=== PATIENT | male | born 1970 | race Caucasian/White ===

== ENCOUNTER → 2017-02-13 | Outpatient (CLI) | payer BC ==
--- NOTE | 2017-02-13 10:50 | KCIC ---
MRI of the lumbar spine without contrast 02/13/2017 CLINICAL HISTORY: Low back pain which radiates down the left leg. TECHNIQUE: Unenhanced T1-weighted and T2-weighted sagittal and axial and inversion recovery sagittal images of the lumbar spine were obtained. FINDINGS: For the purposes of this dictation 5 lumbar vertebrae have been assumed. S1 is slightly lumbarized. Very mild S-shaped curvature of the thoracolumbar spine is seen. Degenerative signal changes are seen involving the L2-3, L4-5 and L5-S1 discs. Degenerative signal changes are seen within the marrow surrounding these discs. The conus medullaris is normal morphology, position, and signal characteristics. The L1-2 disc space is within normal limits. At the L2-3 disc space there is a mild generalized disc bulge. Degenerative changes are seen involving the facet joints bilaterally. There is mild ligamentum flavum hypertrophy bilaterally. These findings when combined do not result in significant central spinal canal or neural foraminal stenosis. At the L3-4 disc space there is a mild generalized disc bulge. Degenerative changes are seen involving the facet joints bilaterally. There is mild ligamentum flavum hypertrophy bilaterally. There is prominence of the posterior epidural fat. These findings when combined do not result in significant central spinal canal or neural foraminal stenosis. At the L4-5 disc space there is a mild generalized disc bulge. This is eccentric to the right. Degenerative changes are seen involving the facet joints bilaterally. There is mild ligamentum flavum hypertrophy bilaterally. Superimposed on the disc bulge is a central/right paracentral focal disc protrusion. This measures 3 mm in AP diameter. These findings when combined do not result in significant central spinal canal or neural foraminal stenosis. At the L5-S1 disc space there is a mild to moderate generalized disc bulge. Superimposed on the disc bulge is a left paracentral/lateral disc osteophyte complex. This measures 5 mm in AP diameter. Degenerative changes are seen involving the facet joints, left greater than right. These findings when combined result in mild left greater than right central spinal canal stenosis. Moderate to severe left neural foraminal stenosis is seen. Mild right neural foraminal stenosis is noted. IMPRESSION: The changes of degenerative disc disease are seen throughout the lumbar spine. These findings when combined result in mild left greater than right central spinal canal stenosis with moderate to severe left neural foraminal stenosis and mild right neural foraminal stenosis at L5-S1. Electronically signed by: Jerome Dey MD (02/13/2017 10:46 AM) [email or web address]
== END | disposition home or self-care (01) ==
LOC: KCIC MRI 09:07
PROVIDERS: ATTEND Chiropractor
DX: M51.36 Other intervertebral disc degeneration, lumbar region (principal); M48.06 Spinal stenosis, lumbar region
CPT/HCPCS: 72148

== ENCOUNTER → 2017-04-12 | Outpatient (CLI) | payer BC ==
[~2017-04-12] MED LIST: Calcium; FLAX10003 PO; HYDR-2758 PO; IOHEXOL 180 MG/ML 10 ML VIAL. ONE; LISINOPRIL; MAGN400C PO; OMEG100021 PO; OMEP20CA9 PO; Vitamin B; Vitamin C; methylPREDNISolone ACETATE 40 MG/ML VIAL. ONE; methylPREDNISolone ACETATE 80 MG/ML VIAL. ONE
--- NOTE | 2017-04-13 01:28 | PAIN ---
DATE OF SERVICE: 04/12/2017 DIAGNOSES: Lumbar radiculopathy with lumbar spinal stenosis, lumbar degenerative disk disease. HISTORY OF PRESENT ILLNESS: The patient is a 47-year-old male who returns for followup status post lumbar epidural steroid injection x 1. The patient reports about 25% improvement overall but after the first few days, the pain began to reduce fairly significantly to about a 50% level, now is about 25%, is becoming more noticeable in the low back, left lower extremity, posterior gluteus, posterior thighs, posterolateral calf and posterior calf, into the foot on the lateral aspect. The patient reports a 10 on a scale of 10 at its worst, 7 at average and 5 on a scale of 10 at its least and is a 5 today. The patient reports aching, sharp, dull, tight, shooting, stabbing, cramping, burning, tingling, becoming more bearable and again building up over time after his last injection, which was on 03/27. The patient reports no motor or sensory deficits. No bowel or bladder incontinence. It awakens him from sleep, but only occasionally, not every night and he sleeps about 6 hours at a time, he needs to be repositioned, sometime sleeps with a heating pad which helps his back as well. PHYSICAL EXAMINATION: VITAL SIGNS: The patient's blood pressure is 148/94, pulse 69, respirations are 20, temperature is 98.0 degrees Fahrenheit. Weight is 291 pounds. GENERAL: The patient is awake, alert, oriented, appropriate, has a very pleasant demeanor. HEENT: Shows normocephalic, atraumatic. Extraocular movements are intact, symmetrical. Oral cavity shows mucous membranes are moist and pink. Dentition is intact. NECK: Shows anterior throat supple without palpable lymphadenopathy noted. Swallow reflex is symmetrical. CHEST: Shows normal on inspection. Breath sounds are clear to auscultation bilaterally. HEART: Shows S1 and S2 clear. No murmurs auscultated. ABDOMEN: Soft, nontender, nondistended. No palpable organomegaly is noted. No rebound or guarding demonstrated. MUSCULOSKELETAL: Back shows spine grossly in the midline. Lumbar paraspinous muscle shows symmetrical on inspection with normal lordotic curvature; with palpation shows some moderate tenderness with palpation bilaterally, but only diffusely without radiation. The patient has good rotational motion both laterally as well as extension and flexion without significant pain reported. The patient's lower extremities showed deep tendon reflexes at 2+ in the patellar and tendo-calcaneus tendons. Motor exam is strong with 5/5 dorsiflexion, extension, quadriceps and hamstring flexion and are symmetrical. Peripheral pulses are 2+, posterior tibial. No peripheral edema is noted bilaterally. PLAN: Options were discussed with the patient and the patient's old chart was reviewed as his current medication regimen and updated. Current review of systems updated today as well and we will proceed with a second in the series lumbar epidural steroid injection today with fluoroscopic guidance. Risks were again discussed including, but not limited to bleeding, infection, possibility of epidural hematoma, subsequent neurological compromise, dural puncture, headaches, spinal cord and/or nerve damage, side effects of steroid medication and poor results regarding pain control. The patient understands and wishes to proceed. The patient is to return to clinic in approximately 2 weeks for followup, was counseled on return appointment, activity level and side effects to be aware of. DIAGNOSES: Lumbar radiculopathy with lumbar spinal stenosis, lumbar degenerative disk disease. PROCEDURE: Lumbar epidural steroid injection in translaminar approach at the L5-S1 level using C-arm fluoroscopic guidance under a sterile prep and drape using local anesthetic. MEDICATIONS INJECTED: A total of 120 mg of Depo-Medrol plus 10 mL of preservative-free normal saline and 2 mL of Isovue for contrast. CONDITION AT DISCHARGE: Stable. The patient tolerated procedure well, had no complications. ANTOINE ZIMMERMAN MD DR: DIDIER/little JOB#: [id number] / [id number]
== END ==
LOC: PNCL 10:07
PROVIDERS: ATTEND Anesthesiology
DX: M48.061 Spinal stenosis, lumbar region without neurogenic claudication (principal); M51.16 Intervertebral disc disorders with radiculopathy, lumbar region
CPT/HCPCS: 62323; J1030; J1040

== ENCOUNTER → 2018-01-11 | Outpatient (CLI) | payer BC ==
[~2018-01-11] MED LIST changes: +CYCL10TA2 PO; +IBUP-1027 PO; +LIDOCAINE 2% PF 2ML VIAL. ONE
--- NOTE | 2018-01-11 16:52 | PAIN ---
DATE OF SERVICE: 01/11/2018 PROGRESS NOTE FOR PAIN CLINIC DIAGNOSIS: Lumbar radiculopathy with lumbar degenerative disk disease and lumbar spinal stenosis. HISTORY OF PRESENT ILLNESS: The patient is a 47-year-old male who returns for followup status post lumbar epidural steroid injection, last seen on 04/12/2017. The patient did very well with near 100% improvement for several months. The patient reports it is currently still helping, but the pain is returning now, more on the right side in the low back than it was on the left, radiating into the posterior gluteus, posterior thigh, posterior calf and lateral calf on the right side. The patient reports some in the left side as well, but mostly on the right. The patient reports it is worse with walking, standing and changing positions. He is sleeping well at night; however, does not awaken him when he is sleeping. It is also better with sitting. The patient reports he had increased his distance walking. He was able to return to work activities, household activities, recreational activities with much greater ease and comfort, now the pain returning, now reports a tingling, burning, cramping, stabbing, shooting, tight, dull, sharp, aching, constant, radiating and becoming more unbearable on the low back in the right side. The patient reports it is a 10 on a scale of 10 at its worst, 9 on average, 0 at its least and is an 8 today. The patient reports no new motor or sensory deficits, no new bowel or bladder incontinence or other complaints. PHYSICAL EXAMINATION: VITAL SIGNS: The patient's blood pressure 145/89, pulse 74, respirations 16, temperature 98.2 degrees Fahrenheit, height 6 feet 1 inch, weight is 313 pounds. GENERAL: The patient is awake, alert, oriented, appropriate, very pleasant demeanor. HEENT: Head shows normocephalic, atraumatic. Extraocular movements are intact and symmetrical. Oral cavity: Mucous membranes are moist and pink. Dentition is intact. NECK: Shows anterior throat supple without palpable lymphadenopathy noted. Swallow reflex is symmetrical. CHEST: Shows normal on inspection. Breath sounds are clear to auscultation bilaterally. HEART: Shows S1, S2 clear. No murmurs auscultated. ABDOMEN: Soft, nontender, nondistended. No palpable organomegaly is noted. No rebound or guarding demonstrated. BACK: Shows spine grossly in the midline. Normal-appearing thoracic kyphosis and lumbar lordotic curvature. Lumbar paraspinous muscle shows symmetrical on inspection, on palpation shows some moderate tenderness, only diffusely in the middle and lower distribution of the paraspinous muscles, more on the right than the left, but without atrophy, hypertrophy, no trigger points, no radiation. No tenderness over the spinous processes, sacrum or sacroiliac regions. The patient has good rotational motion of lumbar spine, both laterally as well as extension and flexion without significant pain reported. EXTREMITIES: Lower extremities show deep tendon reflexes 2+ in the patellar and 1+ tendo-calcaneus tendons. Motor exam is strong with 5/5 dorsiflexion, extension, quadriceps and hamstring flexion and intact and symmetrical. Peripheral pulses are 1+ posterior tibia. No peripheral edema is noted. Options were discussed with the patient. The patient's old chart was reviewed as his current medication regimen updated. Current review of systems updated today as well. We will proceed with a lumbar epidural steroid injection with fluoroscopic guidance. Risks were again discussed including, but not limited to bleeding, infection, possibility of epidural hematoma, subsequent neurologic compromise, dural puncture, headaches, spinal cord and/or nerve damage, side effects of steroid medication and poor results regarding pain control. The patient understands and wished to proceed. The patient will return to the clinic in approximately 2 weeks for followup, was counseled on return appointment, activity level and side effects to be aware of. DIAGNOSIS: Lumbar radiculopathy with lumbar spinal stenosis and lumbar degenerative disk disease. PROCEDURE: Lumbar epidural steroid injection, translaminar approach at L5-S1 level using C-arm fluoroscopic guidance under sterile prep and drape using local anesthetic. MEDICATION INJECTED: A total of 120 mg Depo-Medrol plus 10 mL of preservative-free normal saline and 2 mL of Isovue for contrast. CONDITION AT DISCHARGE: Stable. The patient tolerated the procedure well, had no complications. ANTOINE ZIMMERMAN MD DR: DIDIER/little JOB#: [id number] / [id number]
== END | disposition home or self-care (01) ==
LOC: PNCL 10:56
PROVIDERS: ATTEND Anesthesiology
DX: M51.16 Intervertebral disc disorders with radiculopathy, lumbar region (principal); M48.061 Spinal stenosis, lumbar region without neurogenic claudication; I10 Essential (primary) hypertension; M19.90 Unspecified osteoarthritis, unspecified site; Z79.1 Long term (current) use of non-steroidal anti-inflammatories (NSAID); Z79.899 Other long term (current) drug therapy
CPT/HCPCS: 62323; J1030; J1040; J2001; Q9965

== ENCOUNTER → 2018-01-26 | Outpatient (CLI) | payer BC ==
--- NOTE | 2018-01-26 19:33 | PAIN ---
DATE OF SERVICE: 01/26/2018 PROGRESS NOTE FOR PAIN CLINIC DIAGNOSIS: Lumbar radiculopathy with lumbar degenerative disk disease, lumbar spinal stenosis. HISTORY OF PRESENT ILLNESS: The patient is a 47-year-old male who returns for followup status post lumbar epidural steroid injection x 1. The patient reports 45% improvement overall, still pain in the low back and right lower extremity as it was previously. The patient reports it is aching, sharp, dull, tight, shooting, alternating, tingling, burning, sometimes stabbing, radiating, constant, severe, unbearable at times, worse with sitting for prolonged periods, standing and changing positions from sitting to standing. The patient reports it is a 10 on a scale of 10 at its worst, 8 on average, 0 at its least and is a 4 today. The patient reports no new motor or sensory deficits, no new bowel or bladder incontinence. He was increasing his activity with greater ease and comfort for the first several weeks. Now, the pain is beginning to return to a fairly good extent, but again, it is improved by about 45% overall even to today. PHYSICAL EXAMINATION: VITAL SIGNS: The patient's blood pressure is 145/92, pulse 68, respirations 18, temperature 98.2 degrees Fahrenheit. Height is 6 feet 1 inch, weight is 311 pounds. GENERAL: The patient is awake, alert, oriented, appropriate, very pleasant demeanor. HEENT: Head shows normocephalic, atraumatic. Extraocular movements intact and symmetrical. Oral cavity: Mucous membranes moist and pink. Dentition is intact. NECK: Shows anterior throat supple without palpable lymphadenopathy noted. Swallow reflex symmetrical. CHEST: Shows normal with inspection. Breath sounds clear to auscultation bilaterally. HEART: Shows S1, S2 clear. No murmurs auscultated. ABDOMEN: Soft, nontender, nondistended. No palpable organomegaly. There is no rebound or guarding demonstrated. BACK: Shows spine grossly in the midline. Normal appearing thoracic kyphosis and lumbar lordotic curvature. Lumbar paraspinous muscle shows symmetrical on inspection, on palpation shows some moderate tenderness only diffusely with palpation without radiation. EXTREMITIES: The patient's lower extremities show deep tendon reflexes at 2+ in the patellar, 1+ tendo calcaneus tendons. Motor exam is strong with 5/5 dorsiflexion, extension, quadriceps and hamstring flexion symmetrical. Peripheral pulses are 1+ posterior tibia. No peripheral edema is noted. Options were discussed with the patient. The patient's old chart was reviewed as his current medication regimen updated. Current review of systems updated today as well. We will proceed with a second in a series of lumbar epidural steroid injection today with fluoroscopic guidance. Risks were again discussed including, but not limited to, bleeding, infection, possibility of epidural hematoma and subsequent neurological compromise, dural puncture, headaches, spinal cord and/or nerve damage, side effects of steroid medication and poor results regarding pain control. The patient understands and wished to proceed. The patient to return to clinic in approximately 2 weeks for followup, was counseled on return appointment, activity level and side effects to be aware of. DIAGNOSIS: Lumbar radiculopathy with lumbar spinal stenosis, lumbar degenerative disk disease. PROCEDURE: Lumbar epidural steroid injection, translaminar approach at L5-S1 level using C-arm fluoroscopic guidance under sterile prep and drape using local anesthetic. MEDICATION INJECTED: A total of 120 mg Depo-Medrol plus 10 mL of preservative-free normal saline and 2 mL of Isovue for contrast. CONDITION AT DISCHARGE: Stable. The patient tolerated the procedure well, had no complications. ANTOINE ZIMMERMAN MD DR: DIDIER/little JOB#: [id number] / [id number]
== END | disposition home or self-care (01) ==
LOC: PNCL 07:58
PROVIDERS: ATTEND Anesthesiology
DX: M51.16 Intervertebral disc disorders with radiculopathy, lumbar region (principal); M48.061 Spinal stenosis, lumbar region without neurogenic claudication
CPT/HCPCS: 62323; J1030; J1040; J2001; Q9965

== ENCOUNTER → 2018-02-12 | Outpatient (CLI) | payer BC ==
--- NOTE | 2018-02-12 10:43 | PAIN ---
DATE OF SERVICE: 02/12/2018 DIAGNOSES: Lumbar radiculopathy with lumbar spinal stenosis, lumbar degenerative disk disease. HISTORY OF PRESENT ILLNESS: The patient is a 47-year-old male who returns for followup status post lumbar epidural steroid injection x 2. The patient reports about 30% improvement overall, still helping, but still pain in the low back, right lower extremity, significantly noticeable with standing and walking, especially changing from a sitting to a standing position. He has to go very slowly not to cause back pain to exacerbate. The patient reports it awakens him from sleep, but only very rarely. The patient reports the pain is a 9 on a scale of 10 at its worst, 6 on average, 2 at its least and is a 2 today. With sitting, the pain is almost completely gone. The patient reports it is aching, sharp, dull, tight, shooting, tingling, cramping, burning, stabbing, radiating, becoming more severe in the right lower extremity, posterior gluteus, posterior thigh, posterior calf and right foot, but without significant increase in motor loss. The patient reports no bowel or bladder incontinence as well. PHYSICAL EXAMINATION: VITAL SIGNS: The patient's blood pressure 140/101, pulse 84, respirations 18, temperature 98.2 degrees Fahrenheit, height is 6 feet 5 inches, weight is 311 pounds. GENERAL: The patient is awake, alert, oriented, appropriate, very pleasant demeanor. HEENT: Head is normocephalic, atraumatic. Extraocular movements intact and symmetrical. Oral cavity: Mucous membranes moist and pink. Dentition is intact. NECK: Shows anterior throat supple without palpable lymphadenopathy noted. Swallow reflex symmetrical. CHEST: Shows normal on inspection. Breath sounds are clear to auscultation bilaterally. HEART: Shows S1, S2 clear. No murmurs auscultated. ABDOMEN: Soft, nontender, nondistended. No palpable organomegaly. No rebound or guarding demonstrated. BACK: Shows spine grossly in the midline. Normal appearing thoracic kyphosis and lumbar lordotic curvature. Lumbar paraspinous muscle shows symmetrical on inspection, on palpation shows some mild tenderness, but only diffusely in the low lumbar distribution of the paraspinous musculature without significant radiation. EXTREMITIES: The patient's lower extremities show deep tendon reflexes 2+ in the patellar, 1+ tendo-calcaneus tendons. Motor exam is strong with 5/5 dorsiflexion, extension, quadriceps and hamstring flexion symmetrical. Peripheral pulses are 1+ posterior tibial. No peripheral edema is noted bilaterally. Options were discussed with the patient. The patient's old chart was reviewed, as his current medication regimen updated. Current review of systems updated today as well. We will proceed with a third in the series of lumbar epidural steroid injection today with fluoroscopic guidance. Risks were again discussed including, but not limited to bleeding, infection, possibility of epidural hematoma and subsequent neurological compromise, dural puncture, headaches, spinal cord and/or nerve damage, side effects of steroid medication and poor results regarding pain control. The patient understands and wished to proceed. The patient will return to clinic in approximately 2 weeks for followup. She was counseled on return appointment, activity level and side effects to be aware of. DIAGNOSES: Lumbar radiculopathy with lumbar spinal stenosis, lumbar degenerative disk disease. PROCEDURE: Lumbar epidural steroid injection, translaminar approach L5-S1 level using C-arm fluoroscopic guidance under sterile prep and drape using local anesthetic. MEDICATION INJECTED: A total of 120 mg Depo-Medrol, plus 10 mL of preservative-free normal saline and 2 mL of Isovue for contrast. CONDITION AT DISCHARGE: Stable. The patient tolerated procedure well, had no complications. ANTOINE ZIMMERMAN MD DR: DIDIER/little JOB#: [id number] / [id number]
== END | disposition home or self-care (01) ==
LOC: PNCL 08:25
PROVIDERS: ATTEND Anesthesiology
DX: M51.16 Intervertebral disc disorders with radiculopathy, lumbar region (principal); M48.061 Spinal stenosis, lumbar region without neurogenic claudication
CPT/HCPCS: 62323; J1030; J1040; J2001; Q9965

== ENCOUNTER → 2018-02-13 | Outpatient (CLI) | payer BC ==
[~2018-02-13] MED LIST changes: -IOHEXOL 180 MG/ML 10 ML VIAL. ONE; -LIDOCAINE 2% PF 2ML VIAL. ONE; -methylPREDNISolone ACETATE 40 MG/ML VIAL. ONE; -methylPREDNISolone ACETATE 80 MG/ML VIAL. ONE
--- NOTE | 2018-02-13 10:30 | KCIC ---
MRI Lumbar Spine without contrast History: Back pain, lifting and twisting injury 2 months ago, right side shooting leg pain Technique: Multiplanar, multi sequential noncontrast MR imaging was performed of the lumbar spine. Contrast: None Comparison: February 13, 2017 Findings: Most inferior fully formed intervertebral disc space is considered L5-S1. Lumbar vertebral body stature and AP alignment are unchanged, within normal limits. Conus terminates at L1. There is minimal edema of the inferior L4 endplate probably reactive/degenerative in etiology. There is again mild degenerative disc disease at L4-5 and L5-S1, mild disc desiccation L2-3. L2-L3: Spinal canal and neural foramina are adequate. There is negligible disc osteophyte complex. L3-L4: Neural foramina and spinal canal are adequate. There is again left posterior annular tear. There is prominence of posterior epidural fat. There is mild facet degenerative change greater on the right. L4-L5: There is new protrusion/contained extrusion eccentric to the right lateral recess on the order of 0.9 cm AP by 1.2 cm CC by 1.1 cm transverse. There is indentation upon the ventral thecal sac greater in the right lateral recess, fairly severe right lateral recess stenosis and contact of the descending right L5 nerve root, also near descending right S1 nerve root. There is prominence of posterior epidural fat and mild buckling of the ligamentum flavum. There is also fairly severe attenuation of the thecal sac more centrally with effacement of subarachnoid space. There is very mild narrowing of the right neural foramen, left neural foramen adequate. L5-S1: There is again disc osteophyte complex, superimposed bulge/protrusion more eccentric to left lateral recess as seen previously, near descending left S1 nerve root without significant impingement. Spinal canal is not significantly narrowed. There is again severe narrowing of the left neural foramen by disc osteophyte complex and protrusion in combination with facet degenerative change, contact exiting left L5 nerve root. There is mild narrowing of the right neural foramen. Impression: 1. There is new protrusion/contained extrusion eccentric to the right lateral recess at L4-5 with right lateral recess stenosis and impingement of the descending right L5 nerve root, also near the descending right S1 nerve root. 2. There is again mild degenerative disc disease greatest L4-5 and L5-S1, spondylosis greatest at L5-S1. 3. There is again fairly severe narrowing of the left L5-S1 neural foramen with contact exiting left L5 nerve root. Electronically signed by: Noble Wells MD (02/13/2018 10:27 AM) [email or web address]
== END | disposition home or self-care (01) ==
LOC: KCIC MRI 07:46
PROVIDERS: ATTEND Chiropractor
DX: M51.26 Other intervertebral disc displacement, lumbar region (principal); M51.36 Other intervertebral disc degeneration, lumbar region; M51.37 Other intervertebral disc degeneration, lumbosacral region; M47.896 Other spondylosis, lumbar region; M48.07 Spinal stenosis, lumbosacral region; M25.78 Osteophyte, vertebrae; I10 Essential (primary) hypertension; M19.91 Primary osteoarthritis, unspecified site; Z79.899 Other long term (current) drug therapy
CPT/HCPCS: 72148

== ENCOUNTER → 2018-04-06 | Outpatient (CLI) | payer BC ==
[~2018-04-06] MED LIST changes: +ALLO100T PO; +DOCU-109 PO; +LISI1TAB5 PO; +NAPR-514 PO; +OXYM30SP NS
--- NOTE | 2018-04-06 12:48 | EKG ---
[facility] [address] [place] [address] Test Date: 2018-04-06 Test Time: 12:56:22 Pat Name: CAITLYN CARLSON Department: Room: Gender: Landscape [employer]or: ANDRIY : 1970 Requested By: KING AGUILA Order Number: [id number] Reading MD: Kevin Hernandez MD Measurements Intervals [place] Rate: 63 P: -107 CT: 134 QRS: -57 QRSD: 94 T: -137 QT: 398 QTc: 410 Interpretive Statements SR LAD Electronically Signed On 04-09-2018 11:17:59 TECHNICAL SERVICES SPECIALIST by Kevin Hernandez MD
[2018-04-06 13:09] LABS: BASO # 0.1 x10^3/uL (0.0-0.2); BASO % 1 % (0-3); EOS # 0.2 x10^3/uL (0.0-0.7); EOS % 3 % (0-3); HEMATOCRIT 43.2 % (39.0-53.0); HEMOGLOBIN 15.1 g/dL (13.0-17.5); LYMPH # 2.6 x10^3/uL (1.0-4.8); LYMPH % 38 % (24-48); MEAN CORPUSCULAR HEMOGLOBIN 29 pg (25-35); MEAN CORPUSCULAR HGB CONC 35 g/dL (31-37); MEAN CORPUSCULAR VOLUME 82 fL (79-100); MONO # 0.5 x10^3/uL (0.0-1.1); MONO % 7 % (0-9); NEUT # 3.5 x10^3uL (1.8-7.7); NEUT % 51 % (31-73); PLATELET COUNT 260 x10^3/uL (140-400); RED BLOOD COUNT 5.24 x10^6/uL (4.30-5.70); RED CELL DISTRIBUTION WIDTH 13.7 % (11.5-14.5); WHITE BLOOD COUNT 6.9 x10^3/uL (4.0-11.0)
[2018-04-06 13:52] LABS: ALBUMIN 3.7 g/dL (3.4-5.0); ALBUMIN/GLOBULIN RATIO 1.2 (1.0-1.7); CALCIUM 8.9 mg/dL (8.5-10.1); CREATININE 0.9 mg/dL (0.7-1.3); GFR 89.7; POTASSIUM 3.9 mmol/L (3.5-5.1); TOTAL BILIRUBIN 0.4 mg/dL (0.2-1.0); TOTAL PROTEIN 6.9 g/dL (6.4-8.2)
== END | disposition home or self-care (01) ==
LOC: SURGPAT 11:58
PROVIDERS: ATTEND Neurological Surgery
DX: Z01.818 Encounter for other preprocedural examination (principal); M51.16 Intervertebral disc disorders with radiculopathy, lumbar region
CPT/HCPCS: 36415; 80053; 85025; 87641; 93005

== ENCOUNTER 2018-04-09 07:34 | Day surgery (SDC) | payer BC ==
--- NOTE | 2018-04-08 06:23 | PREOP HP ---
DATE OF SERVICE: 04/09/2018 DATE OF SURGERY: 04/09/2018 HISTORY OF PRESENT ILLNESS: The patient is a pleasant 48-year-old who has back and left leg pain. When I saw him last in 02/2017, I referred him for lumbar epidural steroid injections. At this point, he says the problem has not improved. He reports that in November, he was moving his daughter and lifting heavy objects. He developed severe back and right leg pain. The pain became severe in December. He says the pain radiates into his right lateral thigh and leg to the ankle. The pain is constant, but is worse with walking and activity. He saw a chiropractor, which was not helpful. He did have an epidural steroid injection yesterday morning, which he says has not provided any significant improvement. He has been taking [place], Flexeril and naproxen. He denies significant weakness or numbness in his lower extremities. PAST MEDICAL HISTORY: Gout, cold sores, fever blisters, headaches, migraines, hypertension and tonsillitis. PAST SURGICAL HISTORY: Tonsillectomy in 2014 or 2015. FAMILY HISTORY: Diabetes, heart problems or disease, hypertension, migraine, spine problems. SOCIAL HISTORY: Employed by the [employer]. . Exercises weekly with yoga. Denies substance abuse. Denies tobacco use. Drinks alcohol 1-2 times per month. ALLERGIES: No known drug allergies. CURRENT MEDICATIONS: Lisinopril, buspirone, omeprazole, naproxen, [place] and Flexeril. REVIEW OF SYSTEMS: A 12-point review of systems was obtained and is noncontributory except for that mentioned above. PHYSICAL EXAMINATION: NEUROSURGERY EXAMINATION: GENERAL APPEARANCE: Alert, pleasant, no acute distress. HEAD: Normocephalic, atraumatic. SKIN: Warm and dry. BACK: Mild to moderate tenderness of the lower lumbar spine with palpation. MUSCULOSKELETAL: Lumbar range of motion restricted, normal range of motion of the lower extremities bilaterally. EXTREMITIES: No clubbing, cyanosis or edema. NEUROLOGIC: Alert and oriented x 3, strength 5/5 in bilateral lower extremities, sensory was intact to light touch in the bilateral lower extremities, reflexes present and symmetric in lower extremities, positive straight leg raising on the right, antalgic gait. IMAGING: I reviewed a lumbar MRI scan from 02/13/2018. At L4-L5, there is a new disc protrusion/extrusion eccentric to the right lateral recess at L4-L5 with lateral recess stenosis and impingement of the descending right L5 nerve root. ASSESSMENT: Intervertebral disc disorders with radiculopathy, lumbar region. PLAN: My recommendation is that he undergo a lumbar microdiscectomy at L4-L5. We spoke about the technique, risk, and expected postoperative course. He would like to proceed. We will make the arrangements. KING AGUILA MD DR: LAURENCE/little JOB#: [id number] / [id number] RICHARD
[~2018-04-09] VITALS: Ht 185.4 cm; Wt 146.1 kg
[~2018-04-09 07:34] MED LIST changes: +BACITRACIN 50,000 UNIT in IV NORMAL SALINE 1000ML BAG 1,000 ML IRR ONE; -DOCU-109 PO; +HYDROmorphone 2 MG/ML VIAL IV PRN; +IV RINGERS,LACTATED 1000ML 1,000 ML IV SCH; +LIDOCAINE 1% PF 2 ML VIAL. ID PRN; +MORPHINE SULFATE 2 MG/ML VIAL. IV PRN; +ONDANSETRON PF 4 MG/2 ML VIAL. IV PRN; +PROCHLORPERAZINE 10 MG/2 ML VIAL. IV PRN; +fentaNYL PF VIAL 100 MCG/2 ML VIAL IV PRN
[2018-04-09] MEDS ORDERED: KETOROLAC 60 MG/2 ML INJ FOR OR. ONE (07:43)
[2018-04-09] MEDS ORDERED: THROMBIN TOPICAL 20,000 UNIT SPRAY.SYRN KIT TP ONE (07:43)
[2018-04-09] MEDS ORDERED: BUPIVAC MPF-EPI 0.5%-1:200000 30 ML VIAL. ONE (07:43)
[2018-04-09] MEDS ORDERED: GELATIN SPONGE SIZE 100. ONE (07:43)
[2018-04-09] MEDS ORDERED: PROPOFOL 20 ML IV ONE ×2 (07:59→11:13)
[2018-04-09] MEDS ORDERED: DEXAMETHASONE SOD PHOS 20 MG/5 ML VIAL. ONE (07:59)
[2018-04-09] MEDS ORDERED: REMIFENTANIL 2 MG VIAL. IV ONE (07:59)
[2018-04-09] MEDS ORDERED: PROPOFOL 50 ML IV ONE ×3 (07:59→11:12)
[2018-04-09] MEDS ORDERED: LIDOCAINE 2% PF Vial for OR 5 ML VIAL. ONE (07:59)
[2018-04-09] MEDS ORDERED: ONDANSETRON PF 4 MG/2 ML VIAL. ONE (07:59)
[2018-04-09] MEDS ORDERED: ROCURONIUM 50 MG/5 ML VIAL. ONE (07:59)
[2018-04-09] MEDS ORDERED: PHENYLEPHRINE 10 MG/ML VIAL. ONE (07:59)
[2018-04-09] MEDS ORDERED: MINERAL OIL/PETROLATUM,WHITE OPHTH OINT 3.5GM TUBE. ONE (08:00)
[2018-04-09] MEDS ORDERED: 0.9 % SODIUM CHLORIDE 20 ML VIAL. IJ ONE ×2 (08:09)
[2018-04-09] MEDS ORDERED: ceFAZolin SODIUM 3 GM in IV DEXTROSE 5% 100ML 100 ML IV PRN (09:00)
[2018-04-09] MEDS ORDERED: DESFLURANE > 120 MINUTES IH ONE (09:50)
[2018-04-09] MEDS ORDERED: REMIFENTANIL 1 MG VIAL. IV ONE (11:32)
--- NOTE | 2018-04-09 12:21 | DISCH ---
DISCHARGE INSTRUCTIONS Condition on Discharge Condition on Discharge: Stable Activity After Discharge Activity Instructions for Disc: Activity as tolerated, Avoid exertion Other activity instructions: no driving for a week Bathing Instructions: Shower-keep dressing dry Lifting Instructions after Dis: No heavy lifting, No pulling or pushing, Do not lift >10 pounds Diet after Discharge Additional Diet Restrictions: resume home diet Wound Incision Care Wound/Incision Care: Ice to area for comfort Other wound/incision instructi: may remove dressing in 48 hrs if dry then may shower, no soaking Contacting the after DC Call your doctor for: Concerns you may have Follow-Up Follow up with: Dr. Aguila's nurse in 2 weeks [phone] KING AGUILA MD Apr 09, 2018 12:21
[2018-04-09] MEDS ORDERED: DOCU-109 PO (12:23)
[2018-04-09] MEDS ORDERED: fentaNYL PF VIAL 100 MCG/2 ML VIAL ONE (12:23)
[2018-04-09] MEDS: fentaNYL PF VIAL 100 MCG/2 ML VIAL IV PRN ×2 (12:29→12:50)
--- NOTE | 2018-04-09 12:35 | OP ---
DATE OF SURGERY: 04/09/2018 PREOPERATIVE DIAGNOSES: Herniated nucleus pulposus, L4-L5 right with right lumbar radiculopathy. POSTOPERATIVE DIAGNOSES: Herniated nucleus pulposus, L4-L5 right with right lumbar radiculopathy. OPERATION PERFORMED: Hemilaminotomy and microdiscectomy L4-L5, right. The operation was done with EMG monitoring, SSEP monitoring, fluoroscopy and microscopic dissection. SURGEON: Issac Aguila M.D. [employer] TECHNICIAN: PHUONG Gill assisted with the surgery. She assisted with the exposure, the microdiscectomy as well as closure. OPERATIVE INDICATIONS: The patient is a very pleasant 48-year-old who developed intractable back and right leg pain, which failed conservative measures. On imaging studies, he was found to have a focal herniated disc at L4-L5 on the right. I recommended lumbar microsurgery. I spoke with him about the surgery, the risks, technique and expected operative course and he wished to go ahead. DESCRIPTION OF PROCEDURE: Following general endotracheal anesthesia, the patient was positioned prone on the [place] frame. His lumbar region was prepped and draped in standard fashion. DENISE hose and AV impulse boots were applied for DVT prophylaxis. The microscope was draped. Fluoroscopy was draped and brought in the field. Monitoring was established. Ancef 3 grams was given less than 1 hour prior to initiation of the surgery. Using fluoroscopic guidance, a midline incision was made over the L4-L5 interspace. I dissected down through skin and subcutaneous tissue, reflected the paraspinal muscles and placed a [place] micro disc retractor. I brought in the microscope and the remainder of surgery done with microscope using microscopic technique. I burred down a generous hemilaminotomy and confirming my position fluoroscopically. I trimmed away thickened ligamentum flavum. There were large number of epidural veins and I began to coagulate these and worked through this, but there was a slow steady venous hemorrhage, which was persistent problem throughout the operation. I did use Gelfoam as well as the bipolar cautery and worked to minimize the amount of bleeding. As I worked medially, there was a moderately large subligamentous disc herniation and an epidural component beneath the dura on the right compressing the right L5 root, and as I worked, I was able to gradually work and freed this up and then peeled back and removed this disc. I did perform a generous discectomy within the disc space. Following this, then I explored carefully, the region was very free. There were no retained fragments. I irrigated copiously with antibiotic solution. I closed the wound in layers with absorbable sutures and skin was closed with 4-0 subcuticular stitch. The operation went very well. The patient was taken to recovery room in excellent condition. I was quite pleased with the surgery. ISSAC AGUILA MD DR: LAURENCE/little JOB#: [id number] / [id number] RICHARD
[2018-04-09] MEDS ORDERED: HYDROcodone/APAP 5/325MG 1 TAB TABLET ONE (12:45)
[2018-04-09] MEDS ORDERED: HYDROcodone/APAP 5/325MG 1 TAB TABLET PO ONE (12:45)
[2018-04-09] MEDS ORDERED: CYCL10TA2 PO (12:54)
[2018-04-09 13:45] VITALS: BP 148/72
--- NOTE | 2018-04-11 15:08 | PATHOLOGY ---
[facility] Accession Number: [id number] . 01 Material submitted: . LUMBAR DISC AND DECOMPRESSION . 01 Clinical history: . Lumbar herniated disc and radiculopathy . 02 Diagnosis: Segments of fibrocartilaginous, adipose, and skeletal muscle tissue and bone, lumbar disc and decompression: - Degenerative changes of fibrocartilaginous tissue. . (JPM:vjm;04/11/2018) AGA/04/11/2018 . 02 Comment: There is no evidence of an acute inflammatory process or malignancy. . (JPM:vjm;04/11/2018) . 02 Electronically signed: . Marcus Mata MD, Pathologist NPI- [id number] . 01 Gross description: . Received in formalin labeled "Forbis, Tod, lumbar disc and decompression," are several pieces of glistening, fibrous tissue measuring 5.5 x 2.1 x 0.8 cm in aggregate dimensions, containing small fragments of bone. The tissue submitted representatively in cassette A1, following decalcification. (TSD; 04/09/2018) TOB/TOB . 02 Pathologist provided ICD-10: M51.36 . 02 CPT . 800892, 068120 Specimen Comment: A courtesy copy of this report has been sent to Specimen Comment: [phone], . Specimen Comment: Report sent to / DR SHEIKH Performed at: 01 [facility] [address], [place] [id number] MD Cesar Barillas MD Phone: [phone] Performed at: 02 [facility] [id number] MD Marcus Mata MD Phone: [phone]
== END 2018-04-09 14:10 | disposition home or self-care (01) ==
LOC: SURG 07:34
PROVIDERS: ATTEND Neurological Surgery
DX: M51.16 Intervertebral disc disorders with radiculopathy, lumbar region (principal); I10 Essential (primary) hypertension; G43.909 Migraine, unspecified, not intractable, without status migrainosus; M10.9 Gout, unspecified; Z98.890 Other specified postprocedural states; Z83.3 Family history of diabetes mellitus; Z82.49 Family history of ischemic heart disease and other diseases of the circulatory system; Z72.89 Other problems related to lifestyle; Z82.0 Family history of epilepsy and other diseases of the nervous system; Z79.899 Other long term (current) drug therapy
CPT/HCPCS: 63030; 97162; 97530; A7015; G8978; G8979; G8980; J1100; J1885; J2001; J2405; J2704; J3010; J3490; J7030; J7120; 76000; 88304; 88311